=== PATIENT | male | born 1940 ===

== ENCOUNTER 2024-08-20 05:21 | Day surgery (SDC) | payer OTHER ==
[2024-08-13 09:20] LABS: HEMATOCRIT 39.4 % (39.0-48.0); MEAN CELL VOLUME 87.2 fL (80.0-100.00); MEAN CORPUSCULAR HGB CONC 35.5 g/dl (32.0-36.0); PLATELET COUNT 225 K/uL (150-450); RED BLOOD COUNT 4.51 M/uL (4.00-6.00); RED CELL DISTRIBUTION WIDTH 13.6 % (11.5-14.5)
[2024-08-13 09:21] LABS: PH,URINE 6.5 (5.0-8.0); URINE APPEARANCE Clear; URINE BILIRRUBIN Negative (NEGATIVE); URINE BLOOD Negative; URINE COLOR Yellow; URINE GLUCOSE Negative (NEGATIVE); URINE KETONE Negative (NEGATIVE); URINE LEUKOCYTE Negative; URINE NITRATE Negative; URINE PROTEIN Negative (NEGATIVE)
[2024-08-13 09:22] LABS: URINE BACTERIA 13.4 uL (0.0-1933); URINE EPITHELIAL CELLS 2.6 uL (0.0-38.8); URINE RBC 13.8 uL (0.0-20.8)
[2024-08-13 09:36] VITALS: BP 135/85
[2024-08-13 09:57] LABS: PARTIAL THROMBOPLASTIN TIME 27.6 SECONDS (22.0-34.0); PROTHROMBIN TIME 10.9 SECONDS (9.0-11.5)
[2024-08-13 10:23] LABS: ALBUMIN 3.4 gm/dL (3.4-5.0); BILIRUBIN TOTAL 0.57 mg/dL (0.3-1.2); CALCIUM 9.7 mg/dL (8.5-10.1); CREATININE SERUM 0.84 mg/dL (0.70-1.30); GFR 87.7; GLOBULINA 3.7 G/DL (2.4-3.5); POTASSIUM 3.41 mEq/L (3.5-5.1); TOTAL PROTEIN 7.1 gm/dL (6.4-8.2)
[~2024-08-20] VITALS: Ht 162.6 cm; Wt 70.8 kg
[~2024-08-20 05:21] MED LIST: CARVEDILOL ER40 MG; COZAAR25 MG PO; ZAROXOLYN5 MG PO
[2024-08-20] MEDS ORDERED: EPINEPHRINE HCL/PF 1 MG/ML AMPUL ONE (10:15)
[2024-08-20] MEDS ORDERED: LIDOCAINE HCL 1%/EPINEPHRINE 20ML VIAL IJ ONE (10:16)
[2024-08-20] MEDS ORDERED: POVIDONE-IODINE 118 ML BOTT TOP ONE (10:16)
[2024-08-20] MEDS ORDERED: CEFAZOLIN SODIUM 1,000 MG VIAL ONE (10:40)
[2024-08-20] MEDS ORDERED: SUGAMMADEX SODIUM 200 MG/2 ML VIAL IV ONE (13:28)
[2024-08-20] MEDS ORDERED: KETOROLAC TROMETHAMINE 60 MG VIAL IM PRN (14:15)
[2024-08-20] MEDS ORDERED: PROMETHAZINE HCL 25 MG/ML AMPUL IM PRN (14:15)
== END 2024-08-20 16:10 | disposition home or self-care (01) ==
LOC: CIR.AMB 05:21
PROVIDERS: ATTEND Otolaryngology Otology & Neurotology
DX: H90.71 Mixed conductive and sensorineural hearing loss, unilateral, right ear, with unrestricted hearing on the contralateral side (principal); H74.01 Tympanosclerosis, right ear; D68.9 Coagulation defect, unspecified; Z03.818 Encounter for observation for suspected exposure to other biological agents ruled out; I10 Essential (primary) hypertension